=== PATIENT | female | born 1945 | race Caucasian/White ===

== ENCOUNTER 2023-03-29 13:50 | Outpatient (CLI) | payer OTHER | END 2023-03-29 13:58 | disposition home or self-care (01) | LOC: MRI 13:50 | DX: M17.0 Bilateral primary osteoarthritis of knee (principal); M25.562 Pain in left knee; I11.9 Hypertensive heart disease without heart failure; I34.89 Other nonrheumatic mitral valve disorders; I20.9 Angina pectoris, unspecified; E11.42 Type 2 diabetes mellitus with diabetic polyneuropathy; E11.51 Type 2 diabetes mellitus with diabetic peripheral angiopathy without gangrene; Z79.82 Long term (current) use of aspirin; Z79.84 Long term (current) use of oral hypoglycemic drugs; E03.9 Hypothyroidism, unspecified; E78.2 Mixed hyperlipidemia; H81.399 Other peripheral vertigo, unspecified ear; I66.9 Occlusion and stenosis of unspecified cerebral artery; F41.1 Generalized anxiety disorder; E55.9 Vitamin D deficiency, unspecified; R32 Unspecified urinary incontinence; E66.01 Morbid (severe) obesity due to excess calories | CPT/HCPCS: 73718 ==

== ENCOUNTER 2023-11-18 09:37 | Outpatient (CLI) | payer OTHER | END 2023-11-18 09:40 | disposition home or self-care (01) | LOC: MRI 09:37 | PROVIDERS: ATTEND Specialist | DX: I11.9 Hypertensive heart disease without heart failure (principal); E78.5 Hyperlipidemia, unspecified; E03.8 Other specified hypothyroidism | CPT/HCPCS: 70552; Q9965 ==

== ENCOUNTER 2024-04-24 13:00 | Outpatient (CLI) | payer OTHER | END 2024-04-24 13:04 | disposition home or self-care (01) | LOC: RAD 13:00 | PROVIDERS: ATTEND Orthopaedic Surgery | DX: J40 Bronchitis, not specified as acute or chronic (principal) ==

== ENCOUNTER → 2024-11-01 | Outpatient (CLI) | payer OTHER | END | disposition home or self-care (01) | LOC: SONOGRAMA 08:59 | PROVIDERS: ATTEND Internal Medicine Endocrinology, Diabetes & Metabolism | DX: E04.2 Nontoxic multinodular goiter (principal) ==

== ENCOUNTER 2024-12-11 10:36 | Outpatient (CLI) | payer OTHER | END 2024-12-11 10:51 | disposition home or self-care (01) | LOC: TOM 10:36 | DX: E05.90 Thyrotoxicosis, unspecified without thyrotoxic crisis or storm (principal); I11.9 Hypertensive heart disease without heart failure; Z68.31 Body mass index [BMI] 31.0-31.9, adult; I20.9 Angina pectoris, unspecified; E11.42 Type 2 diabetes mellitus with diabetic polyneuropathy; E11.51 Type 2 diabetes mellitus with diabetic peripheral angiopathy without gangrene; Z79.82 Long term (current) use of aspirin; I34.89 Other nonrheumatic mitral valve disorders; I66.9 Occlusion and stenosis of unspecified cerebral artery; F41.1 Generalized anxiety disorder; E55.9 Vitamin D deficiency, unspecified; R32 Unspecified urinary incontinence; E66.01 Morbid (severe) obesity due to excess calories; Z96.651 Presence of right artificial knee joint | CPT/HCPCS: 70470; Q9965 ==